=== PATIENT | female | born 1985 | race Caucasian/White ===

== ENCOUNTER 2020-07-31 12:45 | Outpatient (REF) | payer MEDICAID, SELFPAY ==
--- NOTE | 2020-07-31 11:30 | PAPFT_PTH ---
PATIENT: Bree Ricardo LOC: [facility]#:[id number] AGE/SX: 35/F ROOM: RE07/31/[address]: Elzbieta De Leon : 1985 BED: DIS: 07/31/2020 SPEC #: [id number] RECD: 08/01/20 13:05 STATUS: GENE CHOUDHURY #: [id number] LILI: 07/31/20 11:[address]: Elzbieta De Leon DEPT: [facility] Cytology RECD BY: Alisha Cox ENTERED: 08/01/20 13:05 SP TYPE: PAPFT AZUL DR: Rin Arnold Tissues: 1 - CX/ENDOCX FOR PAP SMEARS Procedures: PAP THIN PREP/UVM Screening HPV DNA PROBE Comments: [id number]
== END 2020-07-31 13:05 ==
LOC: NCHCN 12:45
PROVIDERS: PCP Pediatrics; Visit Provider Nurse Practitioner Family
DX: Z12.4 Encounter for screening for malignant neoplasm of cervix (principal); Z11.51 Encounter for screening for human papillomavirus (HPV); Z01.419 Encounter for gynecological examination (general) (routine) without abnormal findings; Z00.00 Encounter for general adult medical examination without abnormal findings
CPT/HCPCS: 88142; 87624

== ENCOUNTER 2020-07-31 13:39 | Outpatient (REF) | payer MEDICAID, SELFPAY ==
[2020-07-31 21:41] LABS: Abs Immature Grans 0.03 10^3/uL (0.0-0.06); Absolute Basophil Count 0.03 10^3/uL (0.0-0.2); Absolute Eosinophil Count 0.08 10^3/uL (0.0-0.7); Absolute Lymphocyte Count 3.09 10^3/uL (1.2-3.4); Absolute Monocyte Count 0.41 10^3/uL (0.1-0.8); Absolute Neutrophil Count 7.64 10^3/uL (1.2-6.7); Basophils % 0.3; Eosinophils % 0.7; HCT 40.1 % (36.0-46.0); HGB 13.1 g/dL (11.2-15.7); Immature Grans % 0.3; Lymphocytes % 27.4; MCH 30.7 pg (27.0-33.0); MCHC 32.7 % (32.0-36.0); MCV 93.9 fL (80-95); MPV 9.4 fL (8.0-11.0); Monocytes % 3.6; Neutrophils % 67.7; Nucleated RBC 0 %; Platelet Count 390 10^3/uL (130-400); RBC 4.27 10^6/uL (3.93-5.22); RDW 15.1 % (11.7-14.6); RDW-SD 52.3 fL; WBC 11.28 10^3/uL (4.4-10.8)
[2020-07-31 21:43] LABS: Iron 18 ug/dL (50-170); Total Iron Binding Capacity 353 ug/dL (250-450); Transferrin Sat 5 % (15-50)
[2020-07-31 22:15] LABS: Anion Gap 10.8 mmol/L (3-11); BUN 6 mg/dL (7-18); CO2 24.2 mmol/L (21.0-32.0); CREATININE 0.88 mg/dL (0.55-1.02); Calcium 9.2 mg/dL (8.5-10.1); Chloride 104 mmol/L (98-107); Glucose 88 mg/dL (74-106); Potassium 4.2 mmol/L (3.5-5.1); Sodium 139 mmol/L (136-145); TSH (W/Ref FT4) 1.28 uIU/mL (0.36-3.74); Vitamin B12 312 pg/mL (193-986)
[2020-08-04 10:40] LABS: HIV-1/2 Ag & Ab Screen Negative (Negative)
[2020-08-04 10:53] LABS: Hepatitis C Ab w Rflx HCV PCR Negative (Negative)
== END 2020-07-31 13:59 ==
LOC: NCHCN 13:39
PROVIDERS: PCP Pediatrics; Visit Provider Nurse Practitioner Family
DX: F17.200 Nicotine dependence, unspecified, uncomplicated (principal); G43.909 Migraine, unspecified, not intractable, without status migrainosus; K30 Functional dyspepsia; R53.83 Other fatigue; M79.641 Pain in right hand; M79.642 Pain in left hand; R55 Syncope and collapse; R20.2 Paresthesia of skin; R13.10 Dysphagia, unspecified
CPT/HCPCS: 80048; 86803; 87389; 82607; 83540; 83550; 83735; 84443; 85025

== ENCOUNTER 2020-11-18 14:34 | Outpatient (REF) | payer MEDICAID, SELFPAY ==
[2020-11-18 21:16] LABS: Abs Immature Grans 0.03 10^3/uL (0.0-0.06); Absolute Basophil Count 0.04 10^3/uL (0.0-0.2); Absolute Lymphocyte Count 2.58 10^3/uL (1.2-3.4); Absolute Monocyte Count 0.54 10^3/uL (0.1-0.8); Basophils % 0.3; Eosinophils % 0.5; HCT 36.7 % (36.0-46.0); HGB 12.1 g/dL (11.2-15.7); Immature Grans % 0.2; Lymphocytes % 20.1; MCH 31.3 pg (27.0-33.0); MCV 94.8 fL (80-95); MPV 9.7 fL (8.0-11.0); Monocytes % 4.2; Neutrophils % 74.7; Nucleated RBC 0 %; Platelet Count 349 10^3/uL (130-400); RBC 3.87 10^6/uL (3.93-5.22); RDW 14.2 % (11.7-14.6); RDW-SD 49.6 fL; WBC 12.86 10^3/uL (4.4-10.8)
[2020-11-18 21:17] LABS: Absolute Eosinophil Count 0.06 10^3/uL (0.0-0.7); Absolute Neutrophil Count 9.61 10^3/uL (1.2-6.7)
[2020-11-18 21:29] LABS: Iron 30 ug/dL (50-170); Total Iron Binding Capacity 354 ug/dL (250-450); Transferrin Sat 8 % (15-50)
[2020-11-18 22:46] LABS: Ferritin 12 ng/mL (8-252)
== END 2020-11-18 14:35 | disposition home or self-care (01) ==
LOC: NCHCN 14:34
PROVIDERS: PCP Pediatrics; Visit Provider Nurse Practitioner Family
DX: E61.1 Iron deficiency (principal); D72.829 Elevated white blood cell count, unspecified; R53.83 Other fatigue; R00.2 Palpitations; F41.8 Other specified anxiety disorders
CPT/HCPCS: 82728; 83540; 83550; 85025

== ENCOUNTER 2022-09-27 14:53 | Outpatient (REF) | payer MEDICAID, SELFPAY ==
--- NOTE | 2022-09-27 10:15 | PAPFT_PTH ---
PATIENT: Bree Ricardo LOC: [facility]#:[id number] AGE/SX: 37/F ROOM: RE09/27/[address]: Elzbieta De Leon : 1985 BED: DIS: 09/27/2022 SPEC #: [id number] RECD: 09/27/22 17:28 STATUS: GENE REQ #: [id number] LILI: 09/27/22 10:[address]: Elzbieta De Leon DEPT: [facility] Cytology RECD BY: Alisha Cox ENTERED: 09/27/22 17:28 SP TYPE: PAPFT AZUL DR: Rin Arnold Tissues: 1 - CX/ENDOCX FOR PAP SMEARS Procedures: PAP THIN PREP/UVM Screening HPV DNA PROBE Comments: [id number]
[2022-09-27 15:27] LABS: Abs Immature Grans 0.06 10^3/uL (0.0-0.06); Absolute Eosinophil Count 0.09 10^3/uL (0.0-0.7); Absolute Lymphocyte Count 1.79 10^3/uL (1.2-3.4); Absolute Monocyte Count 0.55 10^3/uL (0.1-0.8); Absolute Neutrophil Count 9.33 10^3/uL (1.2-6.7); Basophils % 0.3; Eosinophils % 0.8; HCT 21.9 % (36.0-46.0); Immature Grans % 0.5; Lymphocytes % 15.1; MCH 17.8 pg (27.0-33.0); MCHC 26.5 % (32.0-36.0); MCV 67 fL (80-95); MPV 9.9 fL (8.0-11.0); Monocytes % 4.6; Neutrophils % 78.7; Platelet Count 545 10^3/uL (130-400); RBC 3.26 10^6/uL (3.93-5.22); RDW 19.4 % (11.7-14.6); RDW-SD 46.6 fL; WBC 11.85 10^3/uL (4.4-10.8)
[2022-09-27 15:42] LABS: Absolute Basophil Count 0.04 10^3/uL (0.0-0.2); HGB 5.8 g/dL (11.2-15.7)
[2022-09-27 15:47] LABS: Iron 8 ug/dL (50-170); Total Iron Binding Capacity 488 ug/dL (250-450); Transferrin Sat 2 % (15-50)
[2022-09-27 15:58] LABS: Anisocytosis 1+; Diff Comment Diff Reviewed; Hypochromasia 3+
[2022-09-27 15:59] LABS: Microcytosis 2+; Poikilocytes 1+
[2022-09-27 16:01] LABS: ALT 13 U/L (14-59); AST 12 U/L (15-37); Albumin 3.9 g/dL (3.4-5.0); Alkaline Phosphatase 85 U/L (46-116); Anion Gap 9.7 mmol/L (3-11); BUN 5 mg/dL (7-18); CO2 25.3 mmol/L (21.0-32.0); CREATININE 0.8 mg/dL (0.55-1.02); Calcium 9.3 mg/dL (8.5-10.1); Chloride 106 mmol/L (98-107); Estimated GFR 96.66 (mL/min/1.73m2); Ferritin 6 ng/mL (8-252); Glucose 88 mg/dL (74-106); Potassium 4.6 mmol/L (3.5-5.1); Sodium 141 mmol/L (136-145); TSH (W/Ref FT4) 1.65 uIU/mL (0.36-3.74); Total Protein 7.3 g/dL (6.4-8.2)
[2022-09-27 16:54] LABS: Bilirubin, Total 0.2 mg/dL (0.2-1.0)
== END 2022-09-27 14:54 | disposition home or self-care (01) ==
LOC: NCHCN 14:53
PROVIDERS: PCP Pediatrics; Visit Provider Nurse Practitioner Family
DX: N92.1 Excessive and frequent menstruation with irregular cycle (principal); R19.09 Other intra-abdominal and pelvic swelling, mass and lump; Z12.4 Encounter for screening for malignant neoplasm of cervix; F41.8 Other specified anxiety disorders; Z11.51 Encounter for screening for human papillomavirus (HPV)
CPT/HCPCS: 80053; 88142; 82728; 83540; 83550; 84443; 85025; 87624

== ENCOUNTER 2022-09-27 16:30 | Emergency (ER) | payer MEDICAID, SELFPAY ==
[2022-09-27 16:34] VITALS: BP 123/63; PULSE 109; RESP 20; O2SAT 100
--- NOTE | 2022-09-27 16:46 | W.ED.GENAD ---
Discharge Plan Disposition Patient Disposition: Home Condition: Stable Discharge Details Clinical Impression: Anemia Primary Care Provider: Elzbieta De Leon ED Provider: Daron Cabrera Home Meds and New Rx's Prescriptions: Continued norethindrone acetate [Aygestin] 5 mg tablet 5 mg PO DAILY Qty: 30 2RF multivitamin Tablet 1 tab PO DAILY Discharge Instructions Instructions: Anemia (ED) Additional Instructions: you were given two units of blood for severe anemia follow up with women's wellness, call their office to arrange follow up if you feel more ill, have difficulty breathing or severe pain return to the emergency department Referrals: Odalis Alexander MD [ [facility]FF PHYSICIAN] - Medical Decision Making 37 yo female who denies chronic medical problems, is a smoker and uses marijuana otherwise denies substance use, comes in after she had a cbc done earlier today and her hemoglobin was 5.8 and so was referred here. She states she was seeing her pcp today because the last 2 years she has had heavy menstrual periods and has noticed a lump in her lower mid abdomen. She denies any black stools, vomiting, fevers. She is not currently bleeding. She has noticed slight dyspnea with walking around but denies dyspnea at rest or chest pain/pressure. She arrives stable speaking clearly in no distress. She has a soft nontender abdomen. She does have what feels to be an enlarged uterus in the lower mid pelvis, she states she had her tubes tied. Suspect slowly worsening anemia and not acute massive hemorrhage, will check, cmp, cbc, coags and try and obtain u/s to further evaluate, if unable as u/s no longer in house at this time will consider CT. AFter discussing with her she consents to having a blood transfusion and has decision making capacity. imaging shows large cystic appearing structure in the uterus. Pt stable, waiting for transfusion. Will consult obgyn Dr. Henry evaluated patient, will start her on norethindrone and f/u with her as an outpatient, if patient's vitals stable and still appears well after transfusion will d/c and have her f/u with obgyn pt tolerated blood transfusion without complications, hemodynamically stable and feels well for d/c, will f/u with women's wellness, return precautions given Differential Diagnosis Differential Diagnosis: dysfunctional bleeding, cancer, anemia Imaging Data Radiologic Study: Attestation: I personally reviewed and interpreted this imaging study as follows: Imaging: CT Scan Radiologist's impression: IMPRESSION: 1. 8.0 x 7.1 x 9.7 cm round well demarcated hypodense lesion within the uterine fundus, as described above, suggesting a complex cystic lesion. The differential diagnosis includes markedly necrotic fibroid, cystic adenomyosis (cystic adenomyoma) as well as endometrial hematoma associated with endometrial obstruction with scarring. Please note that small amount of active hemorrhage within the lesion cannot be entirely excluded on this exam. Also, uterine neoplasm such as low-grade uterine leiomyosarcoma cannot be entirely excluded. No clearly defined embryo is identified within this lesion, but findings could represent sequela of with embryonic demise. Recommend emergent consultation with TUBING MILL OPERATOR service. Further evaluation with pelvic ultrasound or MRI could be obtained as clinically indicated. 2. Mild bilateral hydronephrosis. There is no clear hydroureter, but findings could reflect some degree of distal ureteral compression associated with the enlarged uterine fundus. Please see above. Lab Data Lab results reviewed: Yes I reviewed the patient's lab results. HPI General Mode of arrival: ambulatory. Date/Time Provider Initiated Documentation: 09/27/22 16:31. Limitations to Documentation: no limitations. Information obtained by: patient. History of Present Illness 37 year old F presents to the emergency department with the chief complaint of heavy periods, described as moderate, Patient started experiencing this year(s) (2) and it has been constant. No relieving factors improve symptom(s), No exacerbating factors reported . Patient notes shortness of breath; denies chest pain. Patient did receive the following treatments prior to arrival, none Related Data Home Medications Medication Instructions Recorded Confirmed multivitamin 1 tab PO DAILY 09/27/22 09/27/22 norethindrone acetate 5 mg tablet 5 mg PO DAILY #30 tabs 09/27/22 (Aygestin) Previous Rx's Medication Instructions Recorded norethindrone acetate 5 mg tablet 5 mg PO DAILY #30 tabs 09/27/22 (Aygestin) Allergies Allergy/AdvReac Type Severity Reaction Status Date / Time No Known Allergies Allergy Unverified 09/27/22 16:38 General Stated Complaint: SOB ALEJANDRO: 3 Review of Systems All systems reviewed & are unremarkable except as noted in HPI and below Constitutional Constitutional: Denies chills and Denies fever(s) Cardiovascular Cardiovascular: Denies chest pain Respiratory Respiratory: Denies cough Gastrointestinal Gastrointestinal: Denies abdominal pain, Denies nausea and Denies vomiting Musculoskeletal Musculoskeletal: Denies joint swelling Integumentary/Breasts Skin/Breast: Denies rash PFSH All Active Problems (Updated 09/27/22 @ 19:29 by Daron Cabrera MD) Tobacco use (Acute) Uterine fibroid (Acute) Anemia (Chronic) Social History Smoking/Tobacco Use Status: Current every day Tobacco Type: cigarettes Smoking risk assessment performed?: Yes Alcohol Intake: never Drug use: Daily Substance use type: marijuana Do you feel safe at home: Yes Do you feel safe in your relationship?: Yes Exam Const General: no acute distress Orientation: alert HENMT Head: normal to inspection Ears: external ears normal General nose exam: external nose normal Mouth: moist mucous membranes Eyes General: appearance normal, both eyes and all related structures Neck Neck: normal visual inspection Resp Effort & Inspection: normal respiratory effort and able to speak in complete sentences Cardio Jugular venous pressure: no JVD Rate: regular rate Heart Sounds: no murmurs GI Palpation: soft and nontender Skin General skin exam: no rashes or lesions noted Neuro General: patient alert and patient oriented x3 Extrem General: normal to inspection Psych Mental Status: mental status grossly normal Course Vital Signs Vital signs: Vital Signs Pulse 109 H 09/27/22 16:34 Respiratory Rate 20 09/27/22 16:34 Blood Pressure 123/63 09/27/22 16:34 Pulse Oximetry 100 09/27/22 16:34 Pulse 109 H 09/27/22 16:34 Respiratory Rate 20 09/27/22 16:34 Respiratory Effort Normal 09/27/22 16:37 Blood Pressure 123/63 09/27/22 16:34 Blood Pressure Position Sitting 09/27/22 16:34 Pulse Oximetry 100 09/27/22 16:34 Oxygen Delivery Method Room Air 09/27/22 16:34 Oxygen Flow Rate 0 09/27/22 16:34 Pain Level 0 09/27/22 16:34
[2022-09-27 17:07] LABS: Abs Immature Grans 0.04 10^3/uL (0.0-0.06); Absolute Basophil Count 0.02 10^3/uL (0.0-0.2); Absolute Eosinophil Count 0.14 10^3/uL (0.0-0.7); Absolute Lymphocyte Count 2.47 10^3/uL (1.2-3.4); Absolute Neutrophil Count 7.34 10^3/uL (1.2-6.7); Basophils % 0.2; Eosinophils % 1.3; Immature Grans % 0.4; Lymphocytes % 23.5; MCH 17.6 pg (27.0-33.0); MCHC 26.3 % (32.0-36.0); MCV 67 fL (80-95); Monocytes % 4.8; Neutrophils % 69.8; Platelet Count 465 10^3/uL (130-400); RBC 2.96 10^6/uL (3.93-5.22); RDW-SD 45.3 fL; WBC 10.51 10^3/uL (4.4-10.8)
--- NOTE | 2022-09-27 17:15 | DI.CT_ITS ---
Exam(s) CT ABDOMEN PELVIS W EXAM: CT ABDOMEN PELVIS W CLINICAL HISTORY: lower abdominal pain TECHNIQUE: Imaging Protocol: Axial computed tomography images with coronal and sagittal reformatted images were created and reviewed CONTRAST MATERIAL: Intravenous: Omnipaque 350 Contrast volume:100 mL Oral: No COMPARISON: No exams were available for comparison FINDINGS: ABDOMEN: Lung Bases: Normal where visualized. Liver: Normal density. No measurable mass. Portal, Superior Mesenteric, and Splenic Veins: Unremarkable. Gallbladder and Biliary Tract: Cholelithiasis. There is no biliary ductal dilatation. Pancreas: Normal density, no abnormal calcifications or inflammatory process. Spleen: Normal. Adrenals: No masses seen. Kidneys: Normal size, contour and axis. No radiodense stones or obstructive uropathy. No masses seen. There is dilatation of the collecting systems bilaterally without obstructing stone or mass. This l ikely reflects extrinsic compression secondary to the uterine mass as described below. Abdominal Aorta: Abdominal portion non-dilated. Bowel: No obstruction or bowel wall thickening. Appendix is unremarkable. Peritoneal Cavity: No ascites, collection or mesenteric inflammatory response. No free air. Lymph Nodes: Within normal limits. Bones: Within normal limits for the patient's age. Soft Tissues: Unremarkable. PELVIS: Bladder: Symmetric distention, no gross wall thickening. Reproductive Organs: Within the uterine fundus, there is an 8.0 x 7.1 x 9.7 cm hypodense lesion with Hounsfield units of 21. There are linear areas of increased density seen within the lesion. The ova miguel are visualized and appear unremarkable. Lymph Nodes: Within normal limits. Bones: Within normal limits for the patient's age. IMPRESSION: 8.0 x 7.1 x 9.7 round hypodense lesion seen in the uterine fundus. The lesion appears cystic by Houn sfield units. There are areas of increased density within the lesion which may represent hemorrhage. Differential considerations include necrotic fibroid, cystic adenomyomatosis, hematometra. Uterine neoplasm such as a low-grade glioma sarcoma cannot be excluded. In addition, sequela related to pre gnancy with embryonic demise should also be considered. Emergent tobacco conditioner consult is recommended. Fur ther evaluation may be obtained with pelvic ultrasound and or MRI. There is mild dilatation of the r enal collecting system without obvious obstructing lesion. This likely is secondary to extrinsic com pression due to the enlarged uterus. RADIATION DOSE DELIVERED: 980.41mGy.cm Total DLP DATA REPOSITORY: All CT scans at this facility are submitted to the National Radiology Data Registry (NRDR) Dose Index Registry (DIR) with the [employer] (ACR). RADIATION OPTIMIZATION: All CT scans at this facility use at least one of these dose optimization te chniques: automated exposure control; mA and/or kV adjustment per patient size (includes targeted exa ms where dose is matched to clinical indication); or iterative reconstruction.
[2022-09-27 17:26] LABS: Diff Comment RBC Morph Reviewed; HCT 19.8 % (36.0-46.0); HGB 5.2 g/dL (11.2-15.7)
[2022-09-27 17:27] LABS: Anisocytosis 1+; Hypochromasia 3+; Microcytosis 2+; Poikilocytes 1+; Polychromasia Present
[2022-09-27 17:28] LABS: PTT Activated 21.7 sec (21.5-31.9); Prothrombin Time 9.8 sec (9.3-11.0)
[2022-09-27] MEDS: Omnipaque 350 MG/ML 100 ML BTL IJ (17:46)
[2022-09-27] MEDS: Normal Saline - Diluent 50 ML VIAL IJ (17:46)
[2022-09-27] MEDS: Normal Saline Flush 10 ML SYR IVP (17:46)
[2022-09-27 17:51] LABS: Bilirubin Negative (Negative); Blood Trace-intact (Negative); Clarity Clear (Clear); Glucose Negative (Negative); Ketones Negative (Negative); Leukocyte Esterase Negative (Negative); Nitrite Negative (Negative); Specific Gravity 1.015 (1.005-1.025); Urobilinogen 0.2 mg/dL (Up to 0.2)
[2022-09-27 18:03] LABS: ALT 12 U/L (14-59); AST 13 U/L (15-37); Albumin 3.6 g/dL (3.4-5.0); Alkaline Phosphatase 77 U/L (46-116); Anion Gap 9.5 mmol/L (3-11); BUN 8 mg/dL (7-18); Bilirubin, Total 0.2 mg/dL (0.2-1.0); CO2 24.5 mmol/L (21.0-32.0); CREATININE 0.9 mg/dL (0.55-1.02); Calcium 8.8 mg/dL (8.5-10.1); Chloride 108 mmol/L (98-107); Estimated GFR 83.92 (mL/min/1.73m2); Glucose 106 mg/dL (74-106); Magnesium 1.9 mg/dL (1.8-2.4); Potassium 3.9 mmol/L (3.5-5.1); Sodium 142 mmol/L (136-145); Total Protein 6.9 g/dL (6.4-8.2)
[2022-09-27 18:04] LABS: Bacteria Negative HPF (Negative); C & S Indicated? No; Casts Negative LPF (Negative); Crystals Negative HPF (Negative); Epithelial Cells Rare HPF (Negative); Mucus Negative (Negative); RBC 0-2 HPF (0-2); WBC 0-2 HPF (0-5)
[2022-09-27 18:26] LABS: HCG Qual (Serum) Negative
--- NOTE | 2022-09-27 18:42 | DI.VRAD_ITS ---
PROCEDURE INFORMATION: Exam: CT Abdomen And Pelvis With Contrast Exam date and time: 09/27/2022 5:45 PM Age: 37 years old Clinical indication: Other: Bleeding; Abdominal pain; Generalized TECHNIQUE: Imaging protocol: Computed tomography of the abdomen and pelvis with contrast. Radiation optimization: All CT scans at this facility use at least one of these dose optimization techniques: automated exposure control; mA and/or kV adjustment per patient size (includes targeted exams where dose is matched to clinical indication); or iterative reconstruction. Contrast material: OMNIPAQUE 350; Contrast volume: 100 ml; Contrast route: INTRAVENOUS (IV); COMPARISON: No relevant prior studies available. FINDINGS: Liver: Normal. No mass. Gallbladder and bile ducts: Normal. No calcified stones. No ductal dilation. Pancreas: Normal. No ductal dilation. Spleen: Normal. No splenomegaly. Adrenal glands: Normal. No mass. Kidneys and ureters: There is mild bilateral hydronephrosis without clear hydroureter. No renal or ureteral stones are identified. There is no hydronephrosis or hydroureter. Stomach and bowel: Unremarkable. No obstruction. No mucosal thickening. Appendix: No evidence of appendicitis. Intraperitoneal space: There is no evidence of free intraperitoneal fluid. There is no free intraperitoneal air. Vasculature: Unremarkable. No abdominal aortic aneurysm. Lymph nodes: Unremarkable. No enlarged lymph nodes. Urinary bladder: Unremarkable as visualized. Reproductive: Within the uterine fundus, there is and 8.0 x 7.1 x 9.7 cm mostly homogeneous hypodense lesion having a density of 21 Hounsfield units, suggesting a cystic lesion. There are platelike regions of increased density within this lesion which could represent regions of intralesional hemorrhage. There are normal appearing follicles within both ovaries which appear unremarkable. Bones/joints: There are multilevel mild degenerative changes of the lower thoracic and lumbar spine. No acute fractures are identified. Soft tissues: Unremarkable. IMPRESSION: 1. 8.0 x 7.1 x 9.7 cm round well demarcated hypodense lesion within the uterine fundus, as described above, suggesting a complex cystic lesion. The differential diagnosis includes markedly necrotic fibroid, cystic adenomyosis (cystic adenomyoma) as well as endometrial hematoma associated with endometrial obstruction with scarring. Please note that small amount of active hemorrhage within the lesion cannot be entirely excluded on this exam. Also, uterine neoplasm such as low-grade uterine leiomyosarcoma cannot be entirely excluded. No clearly defined embryo is identified within this lesion, but findings could represent sequela of with embryonic demise. Recommend emergent consultation with HOTEL BREAKFAST ATTENDANT service. Further evaluation with pelvic ultrasound or MRI could be obtained as clinically indicated. 2. Mild bilateral hydronephrosis. There is no clear hydroureter, but findings could reflect some degree of distal ureteral compression associated with the enlarged uterine fundus. Please see above. Findings were discussed with Daron Cabrera at 09/27/2022 6:18 PM EDT. Dictated and Authenticated by: Lefty Hilario MD. Ordering:AMELIA Neri MD
[2022-09-27 18:48] VITALS: BP 125/55; PULSE 90; RESP 16; TEMP 36.9; O2SAT 99
[2022-09-27 19:11] VITALS: BP 112/58; BP 118/62; PULSE 82; PULSE 87; RESP 19; RESP 21; TEMP 36.9; TEMP 37; O2SAT 100
[2022-09-27 20:18] VITALS: BP 119/62; PULSE 84; RESP 18; TEMP 37; O2SAT 100
[2022-09-27 21:04] VITALS: BP 125/60; PULSE 80; RESP 18; TEMP 36.9; O2SAT 100
[2022-09-27 21:08] VITALS: PULSE 90; RESP 18; TEMP 36.9; O2SAT 100
--- NOTE | 2022-09-28 14:06 | NUR.NOTE ---
Nursing Note: Accessed pt chart to determine how many units of blood were given to the patient.
== END 2022-09-27 21:18 | disposition home or self-care (01) ==
PROVIDERS: Emergency Provider Emergency Medicine; PCP Nurse Practitioner Family
DX: D64.9 Anemia, unspecified (principal); R19.00 Intra-abdominal and pelvic swelling, mass and lump, unspecified site; R06.09 Other forms of dyspnea; F17.210 Nicotine dependence, cigarettes, uncomplicated
CPT/HCPCS: 36415; 80053; 81025; 86850; 86900; 86901; 86920; 99285; 74177; 81003; 81015; 83735; 84703; 85025; 85610; 85730; 99284; J3490; P9016

== ENCOUNTER 2022-09-29 15:46 | Outpatient (REF) | payer MEDICAID, SELFPAY ==
--- NOTE | 2022-09-29 14:30 | ENDOMET_PTH ---
PATIENT: Bree Ricardo LOC: [facility] U#:[id number] AGE/SX: 37/F ROOM: RE09/29/[address]: Odalis Alexander : 1985 BED: DIS: 09/29/2022 SPEC #: [id number] RECD: 09/29/22 16:20 STATUS: GENE REMariana #: [id number] LILI: 09/29/22 14:[address]: Odalis Alexander DEPT: Surgical Specimen RECD BY: Alisha Cox ENTERED: 09/29/22 16:20 SP TYPE: Endomet OTHR DR: Elzbieta De Leon Tissues: 1 - ENDOMETRIUM BX/SHAKA Procedures: GROSS AND MICRO LEVEL 4 Comments: [id number]
== END 2022-09-29 15:47 | disposition home or self-care (01) ==
LOC: LBN 15:46
PROVIDERS: PCP Nurse Practitioner Family; Visit Provider Obstetrics & Gynecology Gynecology
DX: N93.9 Abnormal uterine and vaginal bleeding, unspecified (principal)
CPT/HCPCS: 88305

== ENCOUNTER 2022-10-04 01:53 | Outpatient (CLI) | payer MEDICAID, SELFPAY ==
--- NOTE | 2022-10-04 | DI.US_ITS ---
Exam(s) US PELVIS TRANSVAGINAL EXAM: US PELVIS TRANSVAGINAL CLINICAL HISTORY: MENOMETRORRHAGIA N92.1 ABD MASS R19.00 TECHNIQUE: Transabdominal and transvaginal imaging was performed using standard protocol. COMPARISON: US OB US 2-3 TRIMESTER TRANSABD from 11/14/2008 US SURVEY*(P) from 09/28/[address] ABDOMEN PELVIS W from 09/27/2022 FINDINGS: UTERUS: Anteverted. 13.0 x 9.3 x 10.6 cm. Cm Endometrium: Complex cystic mass with blood flow noted within the endometrial canal measuring 9.0 x 7 .4 x 9.2 cm. Myometrium: Unremarkable. Cervix: Unremarkable. OVARIES: Right: Cyst or mass: None. Left: Cyst or mass: None. DOPPLER: Color: Symmetric and uniform flow to both ovaries. No hyperemia. CUL-DE-SAC: Free fluid: None. IMPRESSION: Large heterogeneous complex cystic and solid mass noted within the endometrium. Pathologic correlati on recommended. Unremarkable bilateral ovaries. DATA REPOSITORY:
== END 2022-10-04 02:13 ==
LOC: DI 01:53
PROVIDERS: PCP Nurse Practitioner Family; Visit Provider Nurse Practitioner Family
DX: N92.1 Excessive and frequent menstruation with irregular cycle (principal); R19.09 Other intra-abdominal and pelvic swelling, mass and lump; N85.8 Other specified noninflammatory disorders of uterus
CPT/HCPCS: 76830; 76856

== ENCOUNTER 2023-01-31 18:09 | Outpatient (REF) | payer MEDICAID, SELFPAY ==
[2023-01-31 16:02] LABS: Abs Immature Grans 0.02 10^3/uL (0.0-0.06); Absolute Basophil Count 0.03 10^3/uL (0.0-0.2); Absolute Eosinophil Count 0.23 10^3/uL (0.0-0.7); Absolute Lymphocyte Count 2.16 10^3/uL (1.2-3.4); Absolute Monocyte Count 0.58 10^3/uL (0.1-0.8); Basophils % 0.3; Eosinophils % 2.6; HCT 46.4 % (36.0-46.0); HGB 15.2 g/dL (11.2-15.7); Immature Grans % 0.2; Lymphocytes % 24.2; MCH 29.9 pg (27.0-33.0); MCHC 32.8 % (32.0-36.0); MCV 91 fL (80-95); MPV 9.4 fL (8.0-11.0); Monocytes % 6.5; Neutrophils % 66.2; Platelet Count 337 10^3/uL (130-400); RBC 5.09 10^6/uL (3.93-5.22); RDW 17.4 % (11.7-14.6); RDW-SD 59.9 fL; WBC 8.92 10^3/uL (4.4-10.8)
[2023-01-31 17:02] LABS: Ferritin 36 ng/mL (8-252); Iron 103 ug/dL (50-170); Total Iron Binding Capacity 315 ug/dL (250-450); Transferrin Sat 33 % (15-50)
== END 2023-01-31 18:10 | disposition home or self-care (01) ==
LOC: NCHCN 18:09
PROVIDERS: PCP Nurse Practitioner Family; Visit Provider Nurse Practitioner Family
DX: D64.9 Anemia, unspecified (principal); M54.2 Cervicalgia; D72.829 Elevated white blood cell count, unspecified; R53.83 Other fatigue; G47.00 Insomnia, unspecified; G43.909 Migraine, unspecified, not intractable, without status migrainosus; F17.200 Nicotine dependence, unspecified, uncomplicated
CPT/HCPCS: 82728; 83540; 83550; 85025

== ENCOUNTER 2024-02-03 08:34 | Emergency (ER) | payer MEDICAID, SELFPAY ==
[2024-02-03 08:38] VITALS: BP 129/68; PULSE 77; RESP 18; TEMP 36.7; O2SAT 100
[2024-02-03 08:43] VITALS: BP 129/68; PULSE 77; RESP 18; TEMP 36.7; O2SAT 100
[2024-02-03 08:59] LABS: Bilirubin Negative (Negative); Blood Negative (Negative); Clarity Cloudy (Clear); Glucose Negative (Negative); Ketones Negative (Negative); Leukocyte Esterase Negative (Negative); Nitrite Negative (Negative); Urobilinogen 0.2 mg/dL (Up to 0.2); pH 8.5 (5-8)
--- NOTE | 2024-02-03 09:00 | DI.CT_ITS ---
Exam(s) CT ABDOMEN PELVIS W EXAM: CT ABDOMEN PELVIS W CLINICAL HISTORY: rlq abd pain to flank TECHNIQUE: Imaging Protocol: Axial computed tomography images with coronal and sagittal reformatted images were created and reviewed. CONTRAST MATERIAL: Intravenous: Omnipaque 350 Contrast volume:100 mL Oral: No COMPARISON: CT CT ABDOMEN PELVIS W from 09/27/2022 FINDINGS: ABDOMEN: Lung Bases: Normal where visualized. Liver: Normal density. No measurable mass. Portal, Superior Mesenteric, and Splenic Veins: Unremarkable. Gallbladder and Biliary Tract: No radiodense calculus or dilation. Pancreas: Normal density, no abnormal calcifications or inflammatory process. Spleen: Normal. Adrenals: No masses seen. Kidneys: Normal size, contour and axis. No radiodense stones or obstructive uropathy. No masses seen. Abdominal Aorta: Abdominal portion non-dilated. Bowel: No obstruction or bowel wall thickening. Appendix is unremarkable. Peritoneal Cavity: No ascites, collection or mesenteric inflammatory response. No free air. Lymph Nodes: Within normal limits. Bones: Within normal limits for the patient's age. Soft Tissues: There is a fat containing midline upper abdominal wall small hernia. PELVIS: Bladder: Symmetric distention, no gross wall thickening. Reproductive Organs: The uterus appears to be absent. The ovaries are grossly unremarkable. Lymph Nodes: Within normal limits. Bones: Within normal limits for the patient's age. IMPRESSION: No acute abdominal or pelvic process. RADIATION DOSE DELIVERED: Total DLP DATA REPOSITORY: All CT scans at this facility are submitted to the National Radiology Data Registry (NRDR) Dose Index Registry (DIR) with the [employer] (ACR). RADIATION OPTIMIZATION: All CT scans at this facility use at least one of these dose optimization te chniques: automated exposure control; mA and/or kV adjustment per patient size (includes targeted exa ms where dose is matched to clinical indication); or iterative reconstruction.
--- NOTE | 2024-02-03 09:06 | ED.GENADUL_ITS ---
Discharge Plan Disposition Patient Disposition: Home Condition: Stable Discharge Details Clinical Impression: Acute right flank pain, Abdominal pain, right lower quadrant Primary Care Provider: Elzbieta De Leon ED Provider: Prashant Grady Home Meds and New Rx's Prescriptions: Continued norethindrone acetate 5 mg tablet 5 mg PO .every 6 hours Qty: 60 5RF multivitamin Tablet 1 tab PO DAILY trazodone 50 mg PO HS bupropion HCl [Wellbutrin XL] 150 mg tablet extended release 24 hr 150 mg PO DAILY Discharge Instructions Instructions: Abdominal Pain, Adult ED Additional Instructions: Please see your doctor on Tuesday for reassessment. Please contact your primary care physician to arrange follow-up. Return to the ER immediately for any worsening or new concerning symptoms. Referrals: Elzbieta De Leon [Primary Care Provider] - [facility] General Mode of arrival: ambulatory . Date/Time Provider Initiated Documentation: 02/03/24 08:40 . Limitations to Documentation: no limitations . Information obtained by: patient . HPI Narrative: 38yo female presents with chief complaint of right lower abdomen and flank pain. Patient notes she had some right flank discomfort over the past few days, worse this morning. Pain is now severe. No associated fever. She does have associated nausea and vomiting. No hematuria or dysuria. She is concerned for kidney infection. Last kidney infection was years ago. Related Data Home Medications ?Medication ?Instructions ?Recorded ?Confirmed multivitamin 1 tab PO DAILY 09/27/22 02/03/24 norethindrone acetate 5 mg tablet 5 mg PO .every 6 hours #60 tabs 10/13/22 02/03/24 bupropion HCl 150 mg 24 hr tablet, 150 mg PO DAILY 02/03/24 02/03/24 extended release (Wellbutrin XL) trazodone 50 mg PO HS 02/03/24 02/03/24 Previous Rx's ?Medication ?Instructions ?Recorded norethindrone acetate 5 mg tablet 5 mg PO .every 6 hours #60 tabs 10/13/22 Allergies Allergy/AdvReac Type Severity Reaction Status Date / Time No Known Allergies Allergy Unverified 02/03/24 08:43 General Stated Complaint: Abd Prob ALEJANDRO: 3 Review of Systems All systems reviewed & are unremarkable except as noted in HPI and below Constitutional Constitutional: Denies fever(s) Gastrointestinal Gastrointestinal: Reports as per HPI Exam Const General: cooperative and no acute distress HENMT Mouth: moist mucous membranes Eyes Conjunctivae: normal conjunctivae Sclera: normal sclerae Resp Auscultation: clear to auscultation bilaterally, no rales, no rhonchi and no wheezes Cardio Rate: regular rate and not tachycardic Rhythm: regular rhythm GI Palpation: soft, not firm, no guarding, no masses, not rigid and tender in the RLQ Skin General skin exam: no rashes or lesions noted Neuro General: patient alert, patient awake, patient oriented x3 and tone normal Extrem General: no edema Psych Appearance: grossly normal Mental Status: mental status grossly normal Course Vital Signs Vital signs: Vital Signs Temperature 36.7 C 02/03/24 08:38 Pulse 77 02/03/24 08:38 Respiratory Rate 18 02/03/24 08:38 Blood Pressure 129/68 02/03/24 08:38 Pulse Oximetry 100 02/03/24 08:38 Temperature 36.7 C 02/03/24 08:43 Temperature Source Oral 02/03/24 08:43 Pulse 77 02/03/24 08:43 Respiratory Rate 18 02/03/24 08:43 Respiratory Effort Normal, Non-Labored 02/03/24 08:44 Blood Pressure 129/68 02/03/24 08:43 Blood Pressure Position Sitting 02/03/24 08:43 Pulse Oximetry 100 02/03/24 08:43 Oxygen Delivery Method Room Air 02/03/24 08:43 Oxygen Flow Rate 0 02/03/24 08:43 Lab/Test Results Lab/Test Results: Laboratory Tests Range/Units 02/03/24 08:48 Urine Color (Yellow) Yellow Urine Clarity (Clear) Cloudy Urine pH (5-8) 8.5 H Ur Specific [place] (1.005-1.025) 1.020 Urine Protein (Neg-Trace) mg/dL Negative Urine Ketones (Negative) mg/dL Negative Urine Blood (Negative) Negative Urine Nitrite (Negative) Negative Urine Bilirubin (Negative) Negative Urine Urobilinogen (Up to 0.2) mg/dL 0.2 Ur Leukocyte Esterase (Negative) Negative Urine Glucose (Negative) mg/dL Negative Medical Decision Making 909??38-year-old female here with right flank and right lower quadrant pain. Patient tender in her right lower quadrant. No CVA tenderness. Patient is hemodynamically stable and afebrile. Urinalysis reviewed: No hematuria. No WBCs. Consider acute appendicitis versus renal stone versus other. Plan to obtain CT of the abdomen pelvis to assess for acute surgical pathology. Labs pending. Will give Dilaudid 1 mg IV for severe pain. 1241 --CT of the abdomen pelvis was interpreted by radiology: No acute abdominal or pelvic process. Appendix unremarkable. Results were discussed with the patient. Patient reassessed and has remained stable. Plan for close outpatient reassessment with PCP on Tuesday. Plan discussed with the patient. Disposition decision was made weighing the risks and benefits of hospitalization versus outpatient treatment, the risk for further decompensation, and the patient's wishes. The patient was stable and requested discharge. Prior to discharge, my usual and customary return precautions were reviewed with the patient - this included follow-up instructions and reason to return to the emergency department if condition worsens, does not improve as expected, or other new concerns arise. Lab Data Lab results reviewed: Yes I reviewed the patient's lab results. Labs: Laboratory Tests Range/Units 02/03/24 02/03/24 08:48 09:11 WBC (4.4-10.8) 10^3/uL 14.30 H RBC (3.93-5.22) 10^6/uL 4.73 Hgb (11.2-15.7) g/dL 16.0 H Hct (36.0-46.0) % 46.3 H MCV (80-95) fL 98 H MCH (27.0-33.0) pg 33.8 H MCHC (32.0-36.0) % 34.6 RDW (11.7-14.6) % 12.1 Plt Count (130-400) 10^3/uL 293 MPV (8.0-11.0) fL 9.1 Immature Gran % % 0.1 Neutrophils % % 82.8 Lymphocytes % % 11.3 Monocytes % % 4.3 Eosinophils % % 1.3 Basophils % % 0.2 Nucleated RBC % (0.0-0.3) % 0.0 Absolute Neutrophils (1.2-6.7) 10^3/uL 11.84 H Absolute Lymphocytes (1.2-3.4) 10^3/uL 1.62 Absolute Monocytes (0.1-0.8) 10^3/uL 0.61 Absolute Eosinophils (0.0-0.7) 10^3/uL 0.19 Absolute Basophils (0.0-0.2) 10^3/uL 0.03 Sodium (136-145) mmol/L 141 Potassium (3.5-5.1) mmol/L 3.9 Chloride (98-107) mmol/L 105 Carbon Dioxide (21.0-32.0) mmol/L 27.6 Anion Gap (3-11) mmol/L 8.4 BUN (7-18) mg/dL 7 Creatinine (0.55-1.02) mg/dL 1.0 Est GFR (CKD-EPI 2020) (mL/min/1.73m2) 73.49 Glucose (74-106) mg/dL 126 H Calcium (8.5-10.1) mg/dL 8.9 Total Bilirubin (0.2-1.0) mg/dL 0.30 AST (15-37) U/L 11 L ALT (14-59) U/L 23 Alkaline Phosphatase (46-116) U/L 75 Total Protein (6.4-8.2) g/dL 7.3 Albumin (3.4-5.0) g/dL 4.2 Lipase (16-77) U/L 51 Urine Color (Yellow) Yellow Urine Clarity (Clear) Cloudy Urine pH (5-8) 8.5 H Ur Specific [place] (1.005-1.025) 1.020 Urine Protein (Neg-Trace) mg/dL Negative Urine Ketones (Negative) mg/dL Negative Urine Blood (Negative) Negative Urine Nitrite (Negative) Negative Urine Bilirubin (Negative) Negative Urine Urobilinogen (Up to 0.2) mg/dL 0.2 Ur Leukocyte Esterase (Negative) Negative Urine Glucose (Negative) mg/dL Negative Quality:SDOH Health Related Social Needs: No Data to Display PFSH All Active Problems (Updated 02/03/24 @ 12:43 by Prashant Grady MD) Abdominal pain, right lower quadrant (Acute) Acute right flank pain (Acute) Uterine mass (Acute) Abnormal uterine bleeding (AUB) (Acute) Tobacco use (Acute) Uterine fibroid (Acute) Anemia (Chronic) Social History Smoking/Tobacco Use Status: Current every day Tobacco Type: cigarettes Smoking risk assessment performed?: Yes Alcohol Intake: never Drug use: Daily Substance use type: marijuana Do you feel safe at home: Yes Do you feel safe in your relationship?: Yes
[2024-02-03 09:16] LABS: Abs Immature Grans 0.02 10^3/uL (0.0-0.06); Absolute Basophil Count 0.03 10^3/uL (0.0-0.2); Absolute Eosinophil Count 0.19 10^3/uL (0.0-0.7); Absolute Lymphocyte Count 1.62 10^3/uL (1.2-3.4); Absolute Monocyte Count 0.61 10^3/uL (0.1-0.8); Absolute Neutrophil Count 11.84 10^3/uL (1.2-6.7); Basophils % 0.2 %; Eosinophils % 1.3 %; HCT 46.3 % (36.0-46.0); Immature Grans % 0.1 %; Lymphocytes % 11.3 %; MCH 33.8 pg (27.0-33.0); MCHC 34.6 % (32.0-36.0); MCV 98 fL (80-95); MPV 9.1 fL (8.0-11.0); Monocytes % 4.3 %; Neutrophils % 82.8 %; Platelet Count 293 10^3/uL (130-400); RBC 4.73 10^6/uL (3.93-5.22); RDW 12.1 % (11.7-14.6); RDW-SD 44.2 fL
[2024-02-03] MEDS: HYDROmorphone 2 MG/ML SYR 1 MG IVP (09:22)
[2024-02-03 09:29] VITALS: BP 123/61; PULSE 68; RESP 16; O2SAT 98
[2024-02-03 09:31] LABS: Lipase 51 U/L (16-77)
[2024-02-03 09:34] LABS: ALT 23 U/L (14-59); AST 11 U/L (15-37); Albumin 4.2 g/dL (3.4-5.0); Alkaline Phosphatase 75 U/L (46-116); Anion Gap 8.4 mmol/L (3-11); BUN 7 mg/dL (7-18); CO2 27.6 mmol/L (21.0-32.0); Calcium 8.9 mg/dL (8.5-10.1); Chloride 105 mmol/L (98-107); Estimated GFR 73.49 (mL/min/1.73m2); Glucose 126 mg/dL (74-106); Potassium 3.9 mmol/L (3.5-5.1); Sodium 141 mmol/L (136-145); Total Protein 7.3 g/dL (6.4-8.2)
[2024-02-03] MEDS: Ondansetron 4 MG/2 ML VIAL IVP (10:58)
[2024-02-03] MEDS: Normal Saline - Diluent 50 ML VIAL IJ (11:42)
[2024-02-03] MEDS: Omnipaque 350 MG/ML 100 ML BTL IJ (11:43)
[2024-02-03 13:05] VITALS: BP 143/76; PULSE 69; RESP 15; O2SAT 98
== END 2024-02-03 13:06 | disposition home or self-care (01) ==
PROVIDERS: Emergency Provider Student in an Organized Health Care Education/Training Program; PCP Nurse Practitioner Family
DX: R10.31 Right lower quadrant pain (principal); R10.30 Lower abdominal pain, unspecified
CPT/HCPCS: 36415; 80053; 83690; 96374; 96375; 99285; 74177; 81003; 85025; 99283; J1170; J2405; J3490

== ENCOUNTER → 2024-02-08 01:04 | Outpatient (CLI) | payer MEDICAID, SELFPAY ==
--- NOTE | 2024-02-08 | DI.US_ITS ---
Exam(s) US ABDOMEN PELVIS EXAM: US ABDOMEN PELVIS CLINICAL HISTORY: ACUTE ABD AND RLQ PAIN,R10.31,R10.9,S/P HYST TECHNIQUE: Ultrasound abdomen performed using standard protocol. COMPARISON: CT CT ABDOMEN PELVIS W from 02/03/2024 FINDINGS: LIVER: Normal size and echogenicity. No focal liver lesions are seen. GALLBLADDER: No evidence of cholelithiasis. No evidence of wall thickening. No pericholecystic fluid identified. SOLOMON'S SIGN: Negative. BILIARY SYSTEM: No intrahepatic or extrahepatic biliary ductal dilation. KIDNEYS: Kidneys are symmetric in size. No evidence of renal calculi. No evidence of hydronephrosis. No renal mass or cyst identified. PANCREAS: Normal where visualized. SPLEEN: Not enlarged. ABDOMINAL AORTA AND IVC: Visualized portions normal caliber. ASCITES: None seen. Reproductive: Status post hysterectomy. Ovaries are normal in size and appearance. Bladder is unremarkable. IMPRESSION: Normal sonographic appearance of the upper abdomen. Status post hysterectomy. Normal appearing ovaries. DATA REPOSITORY:
== END ==
PROVIDERS: PCP Nurse Practitioner Family; Visit Provider Nurse Practitioner Family
DX: R10.9 Unspecified abdominal pain (principal); R10.31 Right lower quadrant pain; Z90.711 Acquired absence of uterus with remaining cervical stump
CPT/HCPCS: 76700; 76856